=== PATIENT | male | born 1960 | race Caucasian/White ===

== ENCOUNTER 2016-09-20 05:58 | Day surgery (SDC) | payer MEDICAID ==
[2016-09-20] MEDS ORDERED: Dextrose 5%-Lactated Ringers 1,000 ML IV SCH (07:00)
[2016-09-20] MEDS ORDERED: Propofol 200 MG/20 ML SDV ONE ×3 (07:27→08:03)
[2016-09-20] MEDS ORDERED: Midazolam 1 MG/ML 2 ML SDV ONE (07:27)
[2016-09-20] MEDS ORDERED: fentaNYL 100 MCG/2 ML SDV ONE (07:27)
[2016-09-20 09:21] VITALS: BP 140/90
--- NOTE | 2016-09-21 17:39 | OR ---
DATE OF PROCEDURE: 09/20/2016 PREOPERATIVE DIAGNOSES: Family history of colon carcinoma and personal history of colon polyps. POSTOPERATIVE DIAGNOSES: 1. Recurrent polyps within the cecum x2. 2. Small polyp within the distal sigmoid colon. PROCEDURES: 1. Flexible colonoscopy with a polypectomy x2 of cecal polyps. 2. Biopsy of small polyps involving distal sigmoid colon. ANESTHESIA: IV sedation. INDICATIONS FOR PROCEDURE: The patient is one year status post colonoscopy in which a polypectomy was undertaken. The ureter was somewhat suboptimal due to a very poor prep. At this time, the patient took 1.5 times the amount of MiraLAX and Gatorade, where he normally takes a cup and reports that stool at this point is quite clear. The plan is to proceed with the colonoscopy with biopsies and polypectomy as indicated. Potential risks of the procedure including bleeding and perforation were discussed, and the patient wishes to proceed. DETAILS OF PROCEDURE: The patient was taken to the operating room and placed in a left lateral decubitus position. IV sedation was administered, after which the initial digital rectal exam was performed and was unremarkable. Colonoscope was then passed into the rectum with retroflexion revealing uncomplicated hemorrhoidal columns. The scope was eventually passed to the cecum. The prep today was quite good where there only being a relatively small amount of liquid stool present. Findings included no diverticular areas of colitis. There were two polyps measuring around 3 to 4 mm within the cecum. These were more or less within a centimeter each. Both of these were encircled with their base, excised by means of the cautery snare technique, and separately removed via the suction. As one pulled back the scope, one additional small polyp was located at 15 cm from the dentate line. This was entirely removed by means of a biopsy forceps and the specimen also then delivered from the field. No bleeding was noted from the polypectomy or biopsy sites. The scope was then withdrawn and the procedure then concluded. The patient would appear to have a fairly aggressive tendency for poor polyp formation and I think I would recommend a repeat colonoscopy in one year. We will notify the patient of the pathology report as it becomes available. Gianluca Cudara MD /[id number]
== END 2016-09-20 09:52 | disposition home or self-care (01) ==
LOC: JP.SDS 05:58
PROVIDERS: ATTEND Surgery
DX: Z12.11 Encounter for screening for malignant neoplasm of colon (principal); D12.0 Benign neoplasm of cecum; K63.5 Polyp of colon; Z80.0 Family history of malignant neoplasm of digestive organs; Z86.010 Personal history of colon polyps; Z88.0 Allergy status to penicillin; Z88.2 Allergy status to sulfonamides; Z88.8 Allergy status to other drugs, medicaments and biological substances; F17.200 Nicotine dependence, unspecified, uncomplicated
CPT/HCPCS: 45380; J2250; J2704; J3010; J7042; 88305

== ENCOUNTER 2019-10-20 17:22 | Emergency (ER) | payer MEDICAID ==
[2019-10-20 18:30] VITALS: BP 150/80; PULSE 79
[2019-10-20] MEDS ORDERED: Bacitracin Oint 1 GM U/D Packet TOP ONE ×2 (18:41→20:37)
[2019-10-20] MEDS ORDERED: Diphtheria,Pertussis(Acell),Tetanus Vaccine 0.5 ML SDV IM ONE (18:42)
--- NOTE | 2019-10-20 19:30 | EDM.PDOC ---
ED HPI GENERAL MEDICAL PROBLEM - General Chief Complaint: Laceration Stated Complaint: CUT L EAR Time Seen by Provider: 10/20/19 18:15 Source of Information: Reports: Patient History Limitations: Reports: No Limitations - History of Present Illness INITIAL COMMENTS - FREE TEXT/NARRATIVE: 59 year old male fell off of a ladder injuring his left shoulder, right wrist, and sustaining a laceration to the back of the left ear. He has full range of motion of the shoulder, his main concern is the ear lac, and wrist pain. No chest pain, abdominal pain or difficulty breathing. Has a superficial abrasion on the right flank area. Onset: Sudden Duration: Hour(s): (Within the last hour) Location: Reports: Head, Back, Upper Extremity, Left (wrist and shoulder) Associated Symptoms: Reports: No Other Symptoms Left Ear Pain Score (Numeric/FACES): 7 - Related Data Allergies Allergy/AdvReac Type Severity Reaction Status Date / Time cephaeline Allergy Other Verified 10/20/19 18:31 Penicillins Allergy Other Verified 10/20/19 18:31 Sulfa (Sulfonamide Allergy Other Verified 10/20/19 18:31 Antibiotics) Home Meds: Home Meds Cyclobenzaprine [Flexeril] 10 mg PO TID PRN 08/03/15 [History] Loratadine [Claritin] 10 mg PO DAILY 08/03/15 [History] NIFEdipine [Procardia Xl] 90 mg PO DAILY 08/03/15 [History] oxyCODONE 5 mg PO Q6H PRN 08/03/15 [History] Pregabalin [Lyrica] 150 mg PO BID 08/05/15 [History] Past Medical History HEENT History: Reports: Allergic Rhinitis, Otitis Media Other HEENT History: couple bones replaced in left ear; history of multiple ear infections Cardiovascular History: Reports: Other (See Below) Other Cardiovascular History: Reynauds syndrome Respiratory History: Reports: Asthma Gastrointestinal History: Reports: Colon Polyp, GERD, Other (See Below) Other Gastrointestinal History: Hx hyperplastic polyp Genitourinary History: Reports: Renal Calculus Musculoskeletal History: Reports: Back Pain, Chronic, Fracture, Fibromyalgia, Osteoarthritis Other Musculoskeletal History: torn right rotator cuff Neurological History: Reports: Concussion, Migraines Endocrine/Metabolic History: Reports: Obesity/BMI 30+ Oncologic (Cancer) History: Reports: Colon - Infectious Disease History Infectious Disease History: Reports: Chicken Pox, Mumps, Shingles - Past Surgical History Head Surgeries/Procedures: Reports: None HEENT Surgical History: Reports: Adenoidectomy, Tonsillectomy, Other (See Below) Other HEENT Surgeries/Procedures: Inner ear reconstruction Cardiovascular Surgical History: Reports: None Respiratory Surgical History: Reports: None GI Surgical History: Reports: Colonoscopy, EGD Male Surgical History: Reports: None Endocrine Surgical History: Reports: None Neurological Surgical History: Reports: None Musculoskeletal Surgical History: Reports: None Oncologic Surgical History: Reports: None Social & Family History - Family History Family Medical History: Noncontributory - Tobacco Use Smoking Status *Q: Current Every Day Smoker Years of Tobacco use: 50 Packs/Tins Daily: 0.5 - Caffeine Use Caffeine Use: Reports: Coffee, Soda, Tea - Recreational Drug Use Recreational Drug Use: No ED ROS GENERAL - Review of Systems Review Of Systems: See Below Constitutional: Denies: Fever HEENT: Reports: Other (hx cochlear implant right ear). Denies: Dental Pain GI/Abdominal: Reports: No Symptoms Neurological: Denies: Headache ED EXAM, SKIN/RASH Exam: See Below Exam Limited By: No Limitations General Appearance: Alert, No Apparent Distress Eye Exam: Bilateral Eye: Normal Inspection Ears: Normal TMs, Other (4 cm irregular lac behind the ear on the right side) Neck: Supple, Non-Tender Respiratory/Chest: No Respiratory Distress, Lungs Clear Cardiovascular: Regular Rate, Rhythm GI/Abdominal: Soft, Non-Tender Back Exam: Other (Right flank has a superficial abrasion, no repair needed) Extremities: Other (Tender around the right wrist, right clavicle nontender, full rom. Superficial abrasion on shoulder) Neurological: Alert, Oriented, No Motor/Sensory Deficits Course - Vital Signs Last Recorded V/S: Last Vital Signs Temp 99.8 F 10/20/19 18:28 Pulse 79 10/20/19 18:28 Resp 18 10/20/19 18:28 BP 150/80 H 10/20/19 18:28 Pulse Ox 99 10/20/19 18:28 - Orders/Labs/Meds Orders: Active Orders 24 hr Category Date Time Status Consult to Orthopedic Clinic [CONS] Routine Cons 10/20/19 20:39 Active Wrist Comp Min 3V Lt [CR] Stat Exams 10/20/19 19:23 Taken DME for Discharge [COMM] Stat Oth 10/20/19 20:15 Ordered Meds: Medications Discontinued Medications Generic Name Dose Route Start Last Admin Trade Name Alfa PRN Reason Stop Dose Admin Bacitracin 1 dose 10/20/19 18:41 10/20/19 18:47 Bacitracin Oint 1 Gm TOP 10/20/19 18:42 1 dose ONETIME ONE Administration Bacitracin 1 dose 10/20/19 20:37 10/20/19 20:42 Bacitracin Oint 1 Gm TOP 10/20/19 20:38 1 dose ONETIME ONE Administration Diphtheria/Tetanus/Acell Pertussis 0.5 ml 10/20/19 18:42 10/20/19 18:47 Adacel IM 10/20/19 18:43 0.5 ml .ONCE ONE Administration Lidocaine HCl 5 ml 10/20/19 18:41 10/20/19 18:47 Xylocaine-Mpf 1% INJECT 10/20/19 18:42 5 ml ONETIME ONE Administration - Re-Assessments/Exams Free Text/Narrative Re-Assessment/Exam: 10/20/19 19:31 Ear laceration was anesthetized with lidocaine, cleaned thoroughly with saline, then repaired with 6 5.0 ethilon sutures. Topical bacitracin applied. Wrist xray obtained. 10/20/19 21:24 Wrist xray showed nondisplace fx of distal radius. Orthoglass splint applied by myself, an splint given. Recheck with Dr. Stevenson in two days, keep wounds clean and sutures removed in 7 days. Departure - Departure Time of Disposition: 20:43 Disposition: Home, Self-Care 01 Clinical Impression: Laceration of ear Qualifiers: Encounter type: initial encounter Laterality: left Qualified Code(s): S01.312A - Laceration without foreign body of left ear, initial encounter Radius fracture Qualifiers: Encounter type: initial encounter Radius location: distal Fracture type: closed Laterality: left - Discharge Information Instructions: VIS, DTaP (Diphtheria, Tetanus, Pertussis) Vaccine - CDC (06/03/2019), Laceration Care, Adult, [id number] Referrals: Richard Cruz MD [Primary Care Provider] - Forms: ED Department Discharge Care Plan Goals: Keep arm in splint until recheck, call tomorrow for an appt on . Keep wounds clean while healing and sutures out in 7 days. Sepsis Event Note (ED) - Evaluation Sepsis Screening Result: No Definite Risk - Focused Exam Vital Signs: Vital Signs Temp Pulse Resp BP Pulse Ox 10/20/19 18:28 99.8 F 79 18 150/80 H 99 - My Orders Last 24 Hours: My Active Orders 10/20/19 19:23 Wrist Comp Min 3V Lt [CR] Stat 10/20/19 20:15 DME for Discharge [COMM] Stat 10/20/19 20:39 Consult to Orthopedic Clinic [CONS] Routine - Assessment/Plan Last 24 Hours: My Active Orders 10/20/19 19:23 Wrist Comp Min 3V Lt [CR] Stat 10/20/19 20:15 DME for Discharge [COMM] Stat 10/20/19 20:39 Consult to Orthopedic Clinic [CONS] Routine
--- NOTE | 2019-10-21 08:46 | CR ---
Wrist Comp Min 3V Lt CLINICAL HISTORY: Fall FINDINGS: There is a nondisplaced fracture the distal radius. There is some osteophytic change in the first carpometacarpal junction. Impression: Nondisplaced fracture distal radius Osteoarthritic change
== END 2019-10-20 20:46 | disposition home or self-care (01) ==
LOC: JP.ED 17:22
DX: S52.502A Unspecified fracture of the lower end of left radius, initial encounter for closed fracture (principal); S01.312A Laceration without foreign body of left ear, initial encounter; S30.811A Abrasion of abdominal wall, initial encounter; S40.211A Abrasion of right shoulder, initial encounter; J45.909 Unspecified asthma, uncomplicated; E66.9 Obesity, unspecified; Z68.27 Body mass index [BMI] 27.0-27.9, adult; F17.210 Nicotine dependence, cigarettes, uncomplicated; Z88.0 Allergy status to penicillin; Z88.1 Allergy status to other antibiotic agents; Z88.2 Allergy status to sulfonamides; Z90.89 Acquired absence of other organs; W11.XXXA Fall on and from ladder, initial encounter
CPT/HCPCS: 12013; 29125; 73110; 90471; 90715; 99283; J2001